=== PATIENT | female | born 1955 | race Caucasian/White ===

== ENCOUNTER 2018-07-05 07:21 | Day surgery (SDC) | payer MEDICARE ==
[~2018-07-05 07:21] MED LIST: ALL DAY10 MG PO; AMLODIPINE; AMLODIPINE BESY10 MG PO; AMLODIPINE5 MG PO; ANTI-DIARRHE2 M1 PO; ASPIRIN81 MG PO; ATORVASTATIN; B-121000 MC3 PO; BL ASPIRIN325 MG PO; CELEBREX PO; CLOTRIMAZOLE13 EX; CVS IBUPROFEN200 M1 PO; DOC-Q-LAX1 TAB PO; EXCEDRIN PO; FOLIC ACID PO; LISINOPRIL20 MG PO; LORTAB 5/3255 MG PO; LORTAB 7.57.5 MG PO; METO25TAB PO; METOPROL TAR25 MG PO; METOPROLOL SUCC25 MG PO; MULTI VIT PO; NASACORT A55 MCG/ACT; OMEPRAZOLE20 M2 PO; OXYCO/APAP1 TA5 PO; SIMVASTATIN20 MG PO; TYLENOL 500MG TAB PO; WARFARIN4 MG PO; WARFARIN5 MG PO
[2018-07-05 10:06] VITALS: BP 154/65
== END 2018-07-05 10:10 | disposition home or self-care (01) ==
LOC: ENDO 07:21
PROVIDERS: ATTEND Surgery
PROC: 0DJD8ZZ Inspection of Lower Intestinal Tract, Via Natural or Artificial Opening Endoscopic (ICD-10-PCS; principal; 2018-07-05)
DX: Z12.11 Encounter for screening for malignant neoplasm of colon (principal); K57.30 Diverticulosis of large intestine without perforation or abscess without bleeding; I10 Essential (primary) hypertension